=== PATIENT | female | born 1970 | race Caucasian/White ===

== ENCOUNTER 2020-06-12 12:49 | Outpatient (CLI) | payer OTHER, SELFPAY ==
[2020-06-13 18:01] LABS: SARS-CoV-2 RNA PCR Negative
== END 2020-06-12 12:50 | disposition home or self-care (01) ==
LOC: CHSLAB 12:57
PROVIDERS: PCP Internal Medicine; Visit Provider Nurse Practitioner Family
DX: Z20.828 Contact with and (suspected) exposure to other viral communicable diseases (principal)
CPT/HCPCS: 87635; C9803; U0003

== ENCOUNTER 2020-07-05 10:20 | Outpatient (CLI) | payer OTHER, SELFPAY ==
--- NOTE | 2020-07-06 13:27 | WPDHOLTEREM ---
Holter/Event Monitor Holter/Event Monitor Date of procedure: 07/05/20 Procedure Type: 24 hour holter monitor Indications: Dyspnea, irregular heart beat Conclusion: 1. 24 hour holter monitor on 07/05/20. 2. Underlying rhythm is sinus rhythm. HR range 53-120 bpm; average HR 71 bpm. 3. There are 1,266 premature supraventricular complexes and 3 supraventricular trigeminy. No supraventricular tachycardia. 4. There are 2 premature ventricular complexes. No ventricular tachycardia. 5. No sinoatrial or atrioventricularr blocks. No significant pauses greater than 2 seconds. 6. Patient reports feel them which demonstrate sinus rhythm, HR range 74-75 bpm.
== END 2020-07-05 10:21 | disposition home or self-care (01) ==
PROVIDERS: PCP Internal Medicine; Visit Provider Internal Medicine
DX: R06.00 Dyspnea, unspecified (principal); I49.9 Cardiac arrhythmia, unspecified
CPT/HCPCS: 93225; 93226

== ENCOUNTER 2020-07-16 12:20 | Outpatient (CLI) | payer OTHER, SELFPAY ==
--- NOTE | 2020-07-16 13:30 | ECHO_ITS ---
Patient Info Name: Estee Gill Age: 49 years : 1970 Gender: Female Ht: 70 in Wt: 200 lbs BSA: 2.14 m2 HR: 68 bpm BP: 119 / 84 mmHg Technical Quality: Good Exam Date: 07/16/2020 12:38 PM Exam Location: [facility] Patient Status: Outpatient Admit Date: 07/16/2020 Staff Ordering Physician: Dave Hoover MD Composition Professor: Arturo Banda, HOWARD, RT Attending Provider: Dave Hoover MD Referring Physician: Kiko ELLISON; Exam Type: CA echo doppler color flow Study Info Indications R06.00 - Dyspnea, unspecified Complete two-dimensional, color flow and Doppler transthoracic echocardiogram is performed. Summary 1. Complete two-dimensional, color flow and Doppler transthoracic echocardiogram is performed. 2. Left ventricular chamber dimension is normal. 3. Left ventricular systolic function is normal, estimated at 60-65%. 4. There is mildly increased left ventricular wall thickness. 5. The left ventricular diastolic function is grade I diastolic dysfunction. 6. E/e' 5 is not elevated. Left Ventricle E/e' 5 is not elevated. Left ventricular chamber dimension is normal. Left ventricular systolic function is normal, estimated at 60-65%. There is mildly increased left ventricular wall thickness. The left ventricular diastolic function is grade I diastolic dysfunction. Right Ventricle Right ventricular chamber dimension is normal. Right ventricular systolic function is normal. Left Atria Left atrial chamber dimension is normal. Right Atria Right atrial chamber dimension is normal. Aortic Valve The aortic valve is trileaflet. There is no aortic valve stenosis. There is no aortic valve regurgitation. Pulmonic Valve There is no pulmonic regurgitation. Mitral Valve There is no mitral valve stenosis. There is no mitral valve regurgitation. Tricuspid Valve There is no tricuspid valve regurgitation. Pericardium/Pleural There is no pericardial effusion. Inferior Vena Cava Normal inferior vena cava with >50% collapse upon inspiration consistent with normal right atrial pressure, 5 mmHg. Aorta The aortic root size at the sinus of Valsalva is normal. Left Ventricular Outflow Tract Name Value Normal LVOT 2D LVOT Diameter 2.2 cm LVOT Doppler LVOT Peak Velocity 72 cm/s LVOT Peak Gradient 2 mmHg LVOT Mean Gradient 1 mmHg LVOT VTI 15 cm LVOT VTI/AV VTI Ratio 0.9 LVOT Stroke Volume 58 ml Mitral Valve Name Value Normal MV Doppler MV Decel Banks 257 cm/s2 MV PHT 52 ms MV Area (PHT) 4.2 cm2 4.0-5.0 MV Diastolic Function
== END 2020-07-16 12:21 | disposition home or self-care (01) ==
LOC: CHSIMG 12:21
PROVIDERS: PCP Internal Medicine; Visit Provider Internal Medicine
DX: R06.00 Dyspnea, unspecified (principal); R00.2 Palpitations
CPT/HCPCS: 93306

== ENCOUNTER 2021-08-30 14:18 | Outpatient (CLI) | payer BC, SELFPAY ==
--- NOTE | ~2021-08-30 | MR_ITS ---
EXAMINATION: MR brain/brain stem wo/w con DATE: 08/30/2021 15:28 INDICATION: Tremor. TECHNIQUE: Magnetic resonance imaging (MRI) of the brain and brainstem was performed without and with 20 mL MultiHance intravenous contrast. Sequences included sagittal and axial T1-weighted FSE, axial diffusion-weighted FS EPI, axial T2*-weighted GRE, axial T2-weighted FLAIR Propeller, and axial T2-we ighted Propeller. Postcontrast sequences included axial and coronal T1-weighted FSE. Apparent diffusi on coefficient (ADC) maps were created. COMPARISON: Brain MRI 08/10/2013 FINDINGS: There is no intracranial hemorrhage, acute infarction, or abnormal intracranial mass lesion . The ventricles are normal in size. The orbits are normal. The paranasal sinuses are clear. The mast oid air cells are normal. IMPRESSION: 1. Normal brain. Reviewed, dictated and finalized at location A. IMPRESSION: 1. Normal brain.
--- NOTE | ~2021-08-30 | MR_ITS ---
EXAMINATION: MR lumbar spine wo con DATE: 08/30/2021 15:29 INDICATION: Low back pain. TECHNIQUE: Magnetic resonance imaging (MRI) of the lumbar spine was performed without intravenous con trast. Sequences included sagittal T2-weighted FSE, sagittal T2-weighted FS FSE, sagittal T1-weighted FSE, and axial T2-weighted FSE. COMPARISON: None FINDINGS: There is 4 degrees dextrocurvature of thoracolumbar spine. Vertebral body heights are sadiq l. There is mildly decreased disc height at L1-L2 and L4-L5. The distal spinal cord signal intensity is normal. The conus medullaris is at L1. The following disc levels are specifically discussed: L1-L2: The disc is bulging and has an annular fissure. There is mild bilateral facet joint osteoarthr itis. There is mild right neural foraminal stenosis. There is mild central canal stenosis. L2-L3: The disc is bulging. There is mild bilateral facet joint osteoarthritis. There is mild bilater al neural foraminal stenosis. There is mild central canal stenosis. L3-L4: The disc is bulging and has an annular fissure. There is mild bilateral facet joint osteoarthr itis. There is mild bilateral neural foraminal stenosis. There is mild central canal stenosis. L4-L5: The disc is bulging with superimposed left subarticular zone extrusion with 17 mm superior ext ension to the pedicular level with mass effect on the exiting left L4 nerve root. There is mild bilat eral facet joint osteoarthritis. There is mild bilateral neural foraminal stenosis. There is mild lazaro tral canal stenosis. L5-S1: The disc does not extend beyond the endplate margin. There is moderate bilateral facet joint o steoarthritis. There is no neural foraminal stenosis. There is no central canal stenosis. IMPRESSION: 1. Mild lumbar spondylosis. Of note, an extrusion at L4-L5 exerts mass effect on left L4 nerve root. Reviewed, dictated and finalized at location A. IMPRESSION: 1. Mild lumbar spondylosis. Of note, an extrusion at L4-L5 exerts mass effect o n left L4 nerve root.
[2021-08-30 15:00] LABS: Estimated Glomerular Filt Rate 47
== END 2021-08-30 14:19 | disposition home or self-care (01) ==
LOC: ANHIMG 14:28
PROVIDERS: PCP Internal Medicine; Visit Provider Internal Medicine
DX: G25.0 Essential tremor (principal); M47.896 Other spondylosis, lumbar region; M51.26 Other intervertebral disc displacement, lumbar region
CPT/HCPCS: 70553; 72148; A9577

== ENCOUNTER 2021-11-05 13:02 | Outpatient (RCR) | payer BC, SELFPAY ==
--- NOTE | 2021-11-07 08:34 | PTOPEVAL ---
Thank you for referring Estee Gill to [facility].? The patient is scheduled to be seen for therapy? ____x/week for ___ weeks. Please review, sign, date and return this plan of care ADILENE. I agree with and certify that the following plan of care is medically necessary. Referring Physician Date Admitting Provider: Attending Provider: Estee Delgadillo, [employer] Referring Provider: *PT Outpatient Evaluation Start: 11/05/21 13:02 Freq: Status: Active Protocol: Document 11/05/21 13:03 [facility] (Rec: 11/05/21 14:16 [facility] [id number]) Therapy Assessment Status Assessment Status Assessment Status Evaluation Evaluation Information Problem Diagnosis L LE Drop Foot Onset 10/18/21 Additional Evaluation Detail Oswestry = 40% Functionall Declined Subjective Information She states that she has a Query Text:As Reported By Patient/ herniated disk, which has Family caused her drop foot. She used to have back pain and pain in the back of her L and R thighs. She used to have a lot of pain, but now only has tingling in the L foot. The tingling is primarily on the top of the foot, between the first and second toe. She only has pain in the back of the L LE now as well as tingling in the L foot. She catches her foot on the ground and trips often. When bending over, she has increased pain. 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 She has had back pain for years though. Pain Assessment Timing of Pain Assessment Timing of Pain Assessment Assessment Pain Scale Pain Scale Used Numeric (1 - 10) Self Report Pain Assessment Left Thigh(s) Reported Pain Level 0 Pain Description Aching,Burning,Tingling Lowest Pain Intensity 0 Greatest Pain Intensity 0 Pain Score Pain Score 0: Self Report Interventions Used Interventions Used By Clinicians Medication,Rest Cervical and Lumbar ROM Lumbar ROM Lumbar Flexion Active Ankle Query Text:Hands to: Lumbar Extension (0-40) 30 Query Text:Active in Degrees Lumbar Lateral Flexion Right (0-40) 40
--- NOTE | 2022-02-10 16:34 | PCPTNOTE ---
Mrs. Gill attended a total of 4 treatment sessions from 11/05/21 to 11/18/21. She has failed to return to the clinic and will be discharged from our care. Refer to the pt. last daily note for discharge status.
== END 2021-11-18 23:59 | disposition home or self-care (01) ==
LOC: CHSPT 13:02
PROVIDERS: Visit Provider Nurse Practitioner Acute Care
DX: M51.16 Intervertebral disc disorders with radiculopathy, lumbar region (principal)
CPT/HCPCS: 97012; 97014; 97110; 97161; G0283

== ENCOUNTER → 2023-01-29 09:06 | Outpatient (CLI) | payer BC, SELFPAY ==
--- NOTE | ~2023-01-29 | MR_ITS ---
EXAMINATION: MR lumbar spine wo con DATE: 01/29/2023 09:52 INDICATION: Low back pain. Lumbar radiculopathy. TECHNIQUE: Magnetic resonance imaging (MRI) of the lumbar spine was performed without intravenous con trast. Sequences included sagittal T2-weighted FSE, sagittal T2-weighted FS FSE, sagittal T1-weighted FSE, and axial T2-weighted FSE. COMPARISON: Lumbar spine MRI 08/30/2021 FINDINGS: There is 5 degrees levocurvature of lumbar spine. Vertebral body heights are normal. There is mildly decreased disc height at L1-L2, L3-L4, and L4-L5. The distal spinal cord signal intensity i s normal. The conus medullaris is at L1. The following disc levels are specifically discussed: L1-L2: The disc is bulging. There is mild bilateral facet joint osteoarthritis. There is mild bilater al neural foraminal stenosis. There is mild central canal stenosis. L2-L3: The disc is bulging. There is mild bilateral facet joint osteoarthritis. There is mild bilater al neural foraminal stenosis. There is mild central canal stenosis. L3-L4: The disc is bulging and has an annular fissure. There is mild right and moderate left facet marquez int osteoarthritis. There is mild bilateral neural foraminal stenosis. There is mild central canal st enosis. L4-L5: The disc is bulging with superimposed small left subarticular zone extrusion. There is mild bi lateral facet joint osteoarthritis. There is mild bilateral neural foraminal stenosis. There is mild central canal stenosis. L5-S1: The disc does not extend beyond the endplate margin. There is moderate bilateral facet joint o steoarthritis. There is no neural foraminal stenosis. There is no central canal stenosis. IMPRESSION: 1. Mild lumbar spondylosis with interval improvement in the extrusion at L4-L5. Reviewed, dictated and finalized at location A.
== END ==
PROVIDERS: PCP Internal Medicine; Visit Provider Internal Medicine
DX: M47.26 Other spondylosis with radiculopathy, lumbar region (principal)
CPT/HCPCS: 72148

== ENCOUNTER 2023-04-28 09:48 | Outpatient (CLI) | payer BC, SELFPAY ==
--- NOTE | ~2023-04-28 | DEXA_ITS ---
Bone Density Report Name: FALGUNI MIRANDA Age: 52 Sex: Female Ethnicity: White Date of : 1970 Indication: postmenopausal; screening for osteoporosis; height loss; Referring Provider: DARRYL RANGEL Study: Bone densitometry was performed. Exam Date: April 28, 2023 Accession number: [id number] Bone Density: Region BMD T-score Z-score Classification AP Spine(L1-L4) 0.959 -0.8 0.2 Normal Femoral Neck (Left) 0.722 -1.1 -0.1 Osteopenia Total Hip (Left) 0.834 -0.9 -0.2 Normal Femoral Neck (Right) 0.672 -1.6 -0.6 Osteopenia Total Hip (Right) 0.864 -0.6 0.0 Normal Total Hip Mean 0.849 -0.8 -0.1 Normal World Health Organization criteria for BMD impression classify patients as: Normal (T-score at or above -1.0), Osteopenia (T-score between -1.0 and -2.5), or Osteoporosis (T-score at or below -2.5). 10-year Fracture Risk(1): Major Osteoporotic Fracture 6.3% Hip Fracture 0.5% Reported Risk Factors: [place] (), Neck BMD=0.672, BMI=29.6 (1) FRAX(R) Version 3.08. Fracture probability calculated for an untreated patient. Fracture probability may be lower if the patient has received treatment. Clinical Information Provided by Patient: Patient maximum height was 69.5 Menopause Age: 50 No regular weight bearing exercise Drinks caffeinated beverages Onset of menses at age 11 Number of children 4 Impression: The patient has low bone mass, based on the Right Femoral Neck T-score. The patient has an estimated ten-year risk of hip fracture of 0.5% and an estimated ten-year risk of major fracture of 6.3%, based on the WHO FRAX algorithm. Discussion: BONE DENSITY IS LOW AT ONE OR MORE SKELETAL SITES. This patient's lowest T-score is low at one or more skeletal sites. It meets the World Health Organization's (WHO) criteria for ?low bone mass? (T-score between -1.0 and -2.5). The patient's 10-year risk of fracture as calculated by FRAX is less than the threshold where pharmacological therapy is recommended by the National Osteoporosis Foundation (NOF). However, all treatment decisions require clinical judgment and consideration of individual patient factors, including patient preferences, comorbidities, previous drug use, risk factors not captured in the FRAX model (e.g., frailty, falls, vitamin D deficiency, increased bone turnover, interval significant decline in bone density) and possible under or overestimation of fracture risk by FRAX. The patient should follow a healthful lifestyle (good nutrition with adequate calcium and vitamin D, and appropriate weight-bearing exercise). Follow-Up: Consider repeating this study in 2 to 3 years to reassess this patient's status, or sooner if there is some new clinical indication. Reported by: [facility] on 04/28/2023 10:14:00 AM.
== END 2023-04-28 09:49 | disposition home or self-care (01) ==
PROVIDERS: PCP Internal Medicine; Visit Provider Internal Medicine
DX: M85.89 Other specified disorders of bone density and structure, multiple sites (principal); M81.0 Age-related osteoporosis without current pathological fracture
CPT/HCPCS: 77080

== ENCOUNTER 2024-05-25 11:37 | Outpatient (CLI) | payer BC, SELFPAY ==
--- NOTE | ~2024-05-25 | XR_ITS ---
Thoracic spine: Clinical Indication: Back pain AP and lateral views were performed. Probable mild loss of height of T9-T10. There is moderate to advanced generative disc narrowing throu ghout the thoracic spine Paravertebral soft tissues appear normal. Impression: Moderate to advanced degenerative disc narrowing throughout the thoracic spine. Probable minimal loss of height of T9-T10. Reviewed, dictated and finalized at location . [employer] [employer] Impression: Moderate to advanced degenerative disc narrowing throughout the thoracic spine. Probable minimal loss of height of T9-T10.
--- NOTE | ~2024-05-25 | XR_ITS ---
Lumbosacral Spine: AP and lateral views Clinical History: Pain Findings: The normal lordotic curve is maintained. The vertebral bodies and posterior elements are i ntact. There is moderate to advanced degenerative disc narrowing at L1-L2. There is moderate degenera tive disc narrowing at the remainder of the lumbar spine. There is moderate facet arthropathy through out the lumbar spine. The sacroiliac joints are normally outlined. Impression: Moderate degenerative spondylosis, as above. Reviewed, dictated and finalized at location M. ING EDITOR Impression: Moderate degenerative spondylosis, as above.
== END 2024-05-25 11:38 | disposition home or self-care (01) ==
LOC: CHSIMG 11:41
PROVIDERS: PCP Internal Medicine; Visit Provider Internal Medicine
DX: M54.50 Low back pain, unspecified (principal); M43.06 Spondylolysis, lumbar region
CPT/HCPCS: 72072; 72100